=== PATIENT | male | born 1960 ===

== ENCOUNTER 2017-09-04 11:22 | Emergency (ER) | payer BC ==
[2017-09-04 11:50] VITALS: BP 121/80
[2017-09-04] MEDS ORDERED: Tetan/Diph/Pertus SYR(Tdap)* 0.5 ML SYR(BOOSTRIX) use SYR IM ONE (11:57)
--- NOTE | 2017-09-04 12:00 | UC ---
Lower Extremity/Ankle HPI - HPI Summary HPI Summary: The patient is a 57-year-old male that presents here for a tetanus shot. He is t 2 or 3 days status post a puncture wound to his left foot. A nail went through his sneaker. He states it did not really. He states it felt like it was a superficial injury. He is able to bear weight without pain. There is been no redness swelling discharge. - History of Current Complaint Chief Complaint: UCLowerExtremity Stated Complaint: LFT FOOT INJURY Time Seen by Provider: 09/04/17 11:48 Hx Obtained From: Patient Onset/Duration: Sudden Onset Severity Initially: Mild Severity Currently: None Pain Intensity: 0 Aggravating Factor(s): Standing, Ambulation Alleviating Factor(s): Rest Able to Bear Weight: Yes - Allergies/Home Medications Allergies/Adverse Reactions: Allergies Allergy/AdvReac Type Severity Reaction Status Date / Time Penicillins Allergy Itching Verified 09/04/17 11:45 Home Medications: Home Medications NK [No Home Medications Reported] 09/04/17 [History Confirmed 09/04/17] PMH/Surg Hx/FS Hx/Imm Hx Previously Healthy: Yes - Surgical History Surgical History: Yes Surgery Procedure, Year, and Place: Bilateral ankle surgery - Family History Known Family History: Positive: Cardiac Disease Negative: Hypertension, Diabetes - Social History Alcohol Use: Weekly Alcohol Amount: 4-6 beers Substance Use Type: None Smoking Status (MU): Never Smoked Tobacco Review of Systems Constitutional: Negative Skin: Negative Eyes: Negative ENT: Negative Respiratory: Negative Cardiovascular: Negative Gastrointestinal: Negative Genitourinary: Negative Motor: Negative Neurovascular: Negative Musculoskeletal: Negative Neurological: Negative Psychological: Negative Is Patient Immunocompromised?: No All Other Systems Reviewed And Are Negative: Yes Physical Exam Triage Information Reviewed: Yes Appearance: Well-Appearing, No Pain Distress, Well-Nourished Vital Signs: Initial Vital Signs Temp 98.2 F 09/04/17 11:40 Pulse 52 09/04/17 11:40 Resp 14 09/04/17 11:40 BP 121/80 09/04/17 11:40 Pulse Ox 100 09/04/17 11:40 Vital Signs Reviewed: Yes Eyes: Positive: Conjunctiva Clear ENT Exam: Normal Dental Exam: Normal Neck: Positive: Supple Respiratory: Positive: Lungs clear, Normal breath sounds, No respiratory distress Cardiovascular: Positive: RRR, No Murmur Musculoskeletal: Positive: ROM Intact, No Edema, Other: - normal gait Neurological: Positive: Alert, Other: Psychological Exam: Normal Skin Exam: Other - no pw noted, foot non tender Lower Extremity Course/Dx - Differential Dx/Diagnosis Provider Diagnoses: punture wound left foot Discharge - Sign-Out/Discharge Documenting (check all that apply): Patient Departure - Discharge Plan Condition: Stable Disposition: HOME Patient Education Materials: Puncture Wound (ED) Referrals: Burton Regan MD [Primary Care Provider] - Additional Instructions: recheck for any concerns of infection pain/swelling/redness - Billing Disposition and Condition Condition: STABLE Disposition: Home
== END 2017-09-04 12:07 | disposition home or self-care (01) ==
LOC: UCCORT 11:22
DX: S91.332A Puncture wound without foreign body, left foot, initial encounter (principal); W22.8XXA Striking against or struck by other objects, initial encounter; Y93.9 Activity, unspecified; Y92.9 Unspecified place or not applicable; Z88.0 Allergy status to penicillin
CPT/HCPCS: 90471; 90715; 99201; G0463